=== PATIENT | male | born 1955 | race Caucasian/White ===

== ENCOUNTER 2017-09-23 17:39 | Inpatient (IN) | payer OTHER ==
[~2017-09-23 17:39] MED LIST: ANALGESIC BALM CRM 120 GM TOP; BISACODYL 10 MG SUPP PR; BISACODYL 5 MG TAB PO; DEXTROSE 50% 50 ML SYRINGE IV; FLEET ENEMA PR; GLUCAGON FOR INJ 1 MG VIAL (J1610) SC; GLUCOSE 4 GM CHEW TABLET PO; MAALOX 30 ML SUSP *UDC PO; MIRALAX *UNIT DOSE* 17GM PACKET PO; NORCO, ANEXSIA 5/325MG TABLET (HYDROcodone/ACETAMINOPHEN) PO; ONDANSETRON 4 MG TAB (S0181) PO; ONDANSETRON 4MG/2ML VIAL (J2405) IM; SIMETHICONE 80 MG CHEW TAB PO; guaiFENesin SYRUP 200 MG/10 ML UDC PO
[2017-09-23] MEDS: metFORMIN (GLUCOPHAGE) 1000 MG TABLET PO (19:50)
[2017-09-23] MEDS: NORCO, ANEXSIA 5/325MG TABLET (HYDROcodone/ACETAMINOPHEN) PO (19:52)
[2017-09-23] MEDS: BUDESONIDE 0.25 MG/2 ML INHALATION SUSPENSION INH (20:26)
[2017-09-23] MEDS: HumaLOG INSULIN (NovoLOG) PER UNIT SC (21:00)
[2017-09-23] MEDS: ALBUTEROL 90 MCG/ACT 8GM HFA INHALER INH (21:00)
[2017-09-23 21:25] LABS: BEDSIDE GLUCOSE 126 MG/DL (80-115)
[2017-09-23 21:25] LABS: BEDSIDE GLUCOSE 119 MG/DL (80-115)
[2017-09-23] MEDS: HEPARIN SOD (PORCINE) 5000 UNITS/ML VIAL SC (21:36)
[2017-09-23] MEDS: LEVEMIR (INSULIN DETEMIR) 1 UNITS/0.01ML SC (21:37)
[2017-09-23] MEDS: traZODone 50 MG TAB PO (21:38)
[2017-09-23] MEDS: ATORVASTATIN 20 MG TAB PO (21:38)
[2017-09-24 06:23] LABS: BEDSIDE GLUCOSE 82 MG/DL (80-115)
[2017-09-24] MEDS: BUDESONIDE 0.25 MG/2 ML INHALATION SUSPENSION INH ×2 (07:25→19:39)
[2017-09-24 07:28] LABS: BASO # 0.1 10^3/uL (0.0-0.2); BASO % 0.5 % (0.0-1.0); EOS # 0.6 10^3/uL (0.0-0.50); EOS % 4.7 % (0.0-3.0); HEMATOCRIT 37.2 % (42.0-52.0); HEMOGLOBIN 10.5 g/dl (14.0-18.0); IMMATURE GRANULOCYTE % 0.5 % (0-3.0); LYMPH % 8.2 % (24.0-44.0); MEAN CORPUSCULAR HEMOGLOBIN 24.4 pg (27.0-33.0); MEAN CORPUSCULAR HGB CONC 28.2 g/dl (32.0-36.5); MEAN CORPUSCULAR VOLUME 86.3 fl (80.0-96.0); MONO # 0.8 10^3/uL (0.0-0.8); MONO % 6.9 % (0.0-5.0); NEUTROPHILS # 9.5 10^3/uL (1.8-7.7); NEUTROPHILS % 79.2 % (36.0-66.0); PLATELET COUNT, AUTOMATED 289 10^3/uL (150-450); RED BLOOD COUNT 4.31 10^6/uL (4.30-6.10); RED CELL DISTRIBUTION WIDTH 16.5 % (11.5-14.5)
[2017-09-24] MEDS: HumaLOG INSULIN (NovoLOG) PER UNIT SC ×4 (07:30→21:00)
[2017-09-24] MEDS: ALBUTEROL 90 MCG/ACT 8GM HFA INHALER INH (07:37)
[2017-09-24 07:53] LABS: ALBUMIN 2.1 GM/DL (3.2-5.2); ALKALINE PHOSPHATASE 123 U/L (45-117); ALT/SGPT 15 U/L (12-78); AST/SGOT 12 U/L (7-37); BILIRUBIN,TOTAL 0.3 MG/DL (0.2-1.0); BLOOD UREA NITROGEN 6 MG/DL (7-18); CALCIUM LEVEL 9.4 MG/DL (8.8-10.2); CHLORIDE LEVEL 94 MEQ/L (98-107); CREATININE FOR GFR 0.32 MG/DL (0.70-1.30); GLOMERULAR FILTRATION RATE > 60.0 (>49); GLUCOSE, FASTING 84 MG/DL (70-100); SODIUM LEVEL 141 MEQ/L (136-145); TOTAL PROTEIN 7.4 GM/DL (6.4-8.2)
[2017-09-24] MEDS: SITagliptin 50 MG TAB (JANUVIA) PO (08:02)
[2017-09-24] MEDS: PANTOPRAZOLE 40MG TAB (PROTONIX) PO (08:02)
[2017-09-24] MEDS: metFORMIN (GLUCOPHAGE) 1000 MG TABLET PO ×2 (08:02→17:48)
[2017-09-24] MEDS: MULTIVITAMINS/MINERALS THERAP 1 TAB PO (08:02)
[2017-09-24] MEDS: ATENOLOL 12.5MG PER 1/2 TABLET PO (08:03)
[2017-09-24] MEDS: VITAMIN D 1,000 INTERNATIONAL UNITS TABLET PO (08:03)
[2017-09-24] MEDS: ASPIRIN 81 MG ENTERIC TAB PO (08:03)
[2017-09-24 08:37] LABS: ANION GAP 1 MEQ/L (8-16)
[2017-09-24 08:40] LABS: CARBON DIOXIDE LEVEL 46 MEQ/L (21-32)
[2017-09-24] MEDS: HEPARIN SOD (PORCINE) 5000 UNITS/ML VIAL SC ×2 (11:04→21:51)
[2017-09-24 12:03] LABS: BEDSIDE GLUCOSE 113 MG/DL (80-115)
[2017-09-24 13:01] LABS: AMORPHOUS SEDIMENT RFX SMALL (NEGATIVE); KETONE, URINE AUTO RFX NEGATIVE (NEGATIVE); LEUKOCYTE ESTERASE UR AUTO RFX 3+ (NEGATIVE); MUCUS, URINE RFX SMALL (NEGATIVE); NITRITE, URINE AUTO RFX NEGATIVE (NEGATIVE); RBC, URINE AUTO RFX 19 /HPF (0-3); SPECIFIC GRAVITY UR AUTO RFX 1.015 (1.002-1.035); SQUAM EPITHELIAL CELL UR AURFX 0 /HPF (0-6); WBC, URINE AUTO RFX TNTC /HPF (0-3)
[2017-09-24 17:47] LABS: BEDSIDE GLUCOSE 166 MG/DL (80-115)
[2017-09-24] MEDS: ALBUTEROL SULFATE 2.5 MG/0.5 ML INH NEB SOLN NEB (19:39)
[2017-09-24 21:02] LABS: BEDSIDE GLUCOSE 111 MG/DL (80-115)
[2017-09-24] MEDS: traZODone 50 MG TAB PO (21:51)
[2017-09-24] MEDS: LEVEMIR (INSULIN DETEMIR) 1 UNITS/0.01ML SC (21:51)
[2017-09-24] MEDS: ATORVASTATIN 20 MG TAB PO (21:51)
[2017-09-25 06:16] LABS: HEMATOCRIT 36.5 % (42.0-52.0); HEMOGLOBIN 10.1 g/dl (14.0-18.0); MEAN CORPUSCULAR HEMOGLOBIN 23.7 pg (27.0-33.0); MEAN CORPUSCULAR HGB CONC 27.7 g/dl (32.0-36.5); MEAN CORPUSCULAR VOLUME 85.5 fl (80.0-96.0); PLATELET COUNT, AUTOMATED 306 10^3/uL (150-450); RED BLOOD COUNT 4.27 10^6/uL (4.30-6.10); RED CELL DISTRIBUTION WIDTH 16.4 % (11.5-14.5); WHITE BLOOD COUNT 11.7 10^3/uL (4.0-10.0)
[2017-09-25 06:55] LABS: ALBUMIN/GLOBULIN RATIO 0.38 (1.00-1.93); ALKALINE PHOSPHATASE 131 U/L (45-117); ALT/SGPT 12 U/L (12-78); AST/SGOT 10 U/L (7-37); BILIRUBIN,TOTAL 0.3 MG/DL (0.2-1.0); BLOOD UREA NITROGEN 7 MG/DL (7-18); CALCIUM LEVEL 9.4 MG/DL (8.8-10.2); CHLORIDE LEVEL 93 MEQ/L (98-107); CREATININE FOR GFR 0.31 MG/DL (0.70-1.30); GLOMERULAR FILTRATION RATE > 60.0 (>49); GLUCOSE, FASTING 100 MG/DL (70-100); MAGNESIUM LEVEL 1.9 MG/DL (1.8-2.4); POTASSIUM SERUM 3.9 MEQ/L (3.5-5.1); SODIUM LEVEL 142 MEQ/L (136-145); TOTAL PROTEIN 7.2 GM/DL (6.4-8.2)
[2017-09-25 07:11] LABS: ANION GAP 0 MEQ/L (8-16)
[2017-09-25] MEDS: HumaLOG INSULIN (NovoLOG) PER UNIT SC ×4 (07:30→21:00)
[2017-09-25] MEDS: PANTOPRAZOLE 40MG TAB (PROTONIX) PO (08:18)
[2017-09-25] MEDS: metFORMIN (GLUCOPHAGE) 1000 MG TABLET PO ×2 (08:18→17:42)
[2017-09-25] MEDS: VITAMIN D 1,000 INTERNATIONAL UNITS TABLET PO (08:18)
[2017-09-25] MEDS: SITagliptin 50 MG TAB (JANUVIA) PO (08:18)
[2017-09-25] MEDS: MULTIVITAMINS/MINERALS THERAP 1 TAB PO (08:18)
[2017-09-25] MEDS: ATENOLOL 12.5MG PER 1/2 TABLET PO (08:19)
[2017-09-25] MEDS: ASPIRIN 81 MG ENTERIC TAB PO (08:19)
[2017-09-25] MEDS: BUDESONIDE 0.25 MG/2 ML INHALATION SUSPENSION INH ×2 (08:58→19:19)
[2017-09-25] MEDS: ALBUTEROL 90 MCG/ACT 8GM HFA INHALER INH (08:58)
[2017-09-25] MEDS: HEPARIN SOD (PORCINE) 5000 UNITS/ML VIAL SC ×2 (09:07→21:38)
[2017-09-25 11:33] LABS: BEDSIDE GLUCOSE 91 MG/DL (80-115)
[2017-09-25] MEDS: NORCO, ANEXSIA 5/325MG TABLET (HYDROcodone/ACETAMINOPHEN) PO ×2 (13:59→21:37)
[2017-09-25] MEDS: ALBUTEROL SULFATE 2.5 MG/0.5 ML INH NEB SOLN NEB (16:17)
[2017-09-25 16:32] LABS: BEDSIDE GLUCOSE 126 MG/DL (80-115)
[2017-09-25] MEDS: ATORVASTATIN 20 MG TAB PO (21:36)
[2017-09-25] MEDS: traZODone 50 MG TAB PO (21:37)
[2017-09-25] MEDS: LEVEMIR (INSULIN DETEMIR) 1 UNITS/0.01ML SC (21:38)
[2017-09-25 23:04] LABS: BEDSIDE GLUCOSE 130 MG/DL (80-115)
[2017-09-26] MEDS: NORCO, ANEXSIA 5/325MG TABLET (HYDROcodone/ACETAMINOPHEN) PO (06:54)
[2017-09-26 07:07] LABS: BEDSIDE GLUCOSE 170 MG/DL (80-115)
[2017-09-26] MEDS: ALBUTEROL 90 MCG/ACT 8GM HFA INHALER INH (08:24)
[2017-09-26] MEDS: BUDESONIDE 0.25 MG/2 ML INHALATION SUSPENSION INH ×2 (08:25→19:34)
[2017-09-26] MEDS: ALBUTEROL SULFATE 2.5 MG/0.5 ML INH NEB SOLN NEB (08:25)
[2017-09-26] MEDS ORDERED: LORazepam 2 MG/ML VIAL (J2060) IV (09:00)
[2017-09-26] MEDS ORDERED: LORazepam 1 MG TAB PO (09:00)
[2017-09-26] MEDS ORDERED: MORPHINE 4 MG/ML 1ML VIAL (J2270) IV (09:00)
[2017-09-26] MEDS: ATENOLOL 12.5MG PER 1/2 TABLET PO (09:25)
[2017-09-26] MEDS: PANTOPRAZOLE 40MG TAB (PROTONIX) PO (09:25)
[2017-09-26] MEDS: ACETAMINOPHEN TAB 650MG DOSE (2X325MG) PO (12:42)
[2017-09-26] MEDS: SCOPOLAMINE 1MG TRANSDERMAL PATCH TOP (13:38)
[2017-09-26] MEDS: MORPHINE 10MG/0.5ML ORAL CONCENTRATE SOLUTION U/D SL (15:09)
== END 2017-09-26 19:00 | disposition expired | DRG 58 ==
LOC: M PM&R 17:39
PROVIDERS: Physical Medicine & Rehabilitation
DX: G72.81 Critical illness myopathy (principal); J96.01 Acute respiratory failure with hypoxia; J86.0 Pyothorax with fistula; L89.153 Pressure ulcer of sacral region, stage 3; L89.322 Pressure ulcer of left buttock, stage 2; E46 Unspecified protein-calorie malnutrition; Z93.0 Tracheostomy status; E11.40 Type 2 diabetes mellitus with diabetic neuropathy, unspecified; C34.90 Malignant neoplasm of unspecified part of unspecified bronchus or lung; I48.91 Unspecified atrial fibrillation; Z93.1 Gastrostomy status; Z90.2 Acquired absence of lung [part of]; Z51.5 Encounter for palliative care; Z66 Do not resuscitate; J44.9 Chronic obstructive pulmonary disease, unspecified; G47.00 Insomnia, unspecified; B96.20 Unspecified Escherichia coli [E. coli] as the cause of diseases classified elsewhere; I10 Essential (primary) hypertension; E73.9 Lactose intolerance, unspecified; Z87.891 Personal history of nicotine dependence; Z79.84 Long term (current) use of oral hypoglycemic drugs; Z79.82 Long term (current) use of aspirin; I46.9 Cardiac arrest, cause unspecified; Z79.899 Other long term (current) drug therapy